=== PATIENT | male | born 1965 | race Caucasian/White ===

== ENCOUNTER 2018-04-08 12:12 | Emergency (ER) | payer BC ==
--- OUTSIDE RECORDS SUMMARY | 2018-04-08 12:14 | XMS REPORT ---
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 91368180093 10 MG Orally Once Active 1 tablet a day Results No Known Results Summary Purpose eClinicalWorks Submission
--- OUTSIDE RECORDS SUMMARY | 2018-04-08 12:14 | XMS REPORT ---
:1965 Author Organization eClinicalWorks Care Team Providers Name Role Phone Bobbi, Christiano Provider Role Unavailable Allergies No Known Allergies [...] Active Problem Osteoarthritis, multiple sites M15.9 Active Assessment Other chronic pain G89.29 Active Assessment Pain in right knee M25.561 Active Assessment Type 2 diabetes mellitus with E11.65 Active hyperglycemia Assessment Hyperlipidemia E78.5 Active Assessment Hypertension I10 Active Medications Medication Code Code Instructions Start End Status Dosage System Date Date Simvastatin [facility] 97622449179 20 MG Oral Active TAKE 1 TABLET EVERY EVENING EQ Aspirin Adult [facility] 28400917416 81 MG Oral Active not Low Dose defined Zestril [facility] 69360970672 10 MG Active TAKE 1 TABLET BY MOUTH EVERY DAY Lyrica [facility] 13956213447 50 MG Oral Active not defined Indomethacin [facility] 11400352195 25 MG Oral Sept Active take one Twice a day 18, capsule by 2018 mouth twice a day Lisinopril [facility] 38038347672 10 MG Oral Active TAKE 1 TABLET BY MOUTH EVERY DAY Methocarbamol [facility] 49382453123 500 MG Oral bid Sept Active take 1 18, tablet by 2018 mouth twice a day Niacin ER ND 25358649667 500 MG Orally Active 1 capsule Once a day with food Calcipotriene [facility] 58893809387 0.005 % Active not External defined Pneumovax 23 [facility] 37428878374 25 MCG/0.5ML Active not Injection defined Diclofenac Sodium [facility] 91104525938 75 MG Orally Jenni Active 1 tablet Twice a day as 21, with food needed 2018 or milk Aspirin [facility] 71049383438 81 MG Oral Active TAKE 1 TABLET BY MOUTH EVERY DAY Flonase [facility] 10665930664 50 MCG/ACT Active 1 spray in Nasally Once a each day nostril Claritin-D 12 [facility] 86666930781 5-120 MG Orally Active 1 tablet Hour every 12 hrs as needed Metformin HCl [facility] 50336825224 500 MG Oral Active TAKE 1 TABLET BY MOUTH TWICE A DAY Amoxicillin-Pot [facility] 66056208924 500-125 MG Oral Active TAKE 1 Clavulanate TABLET BY MOUTH EVERY 8 HOUR FOR 10 DAYS Zyrtec Allergy [facility] 39118863366 10 MG Orally Active 1 tablet Once a day Results No Known Results Summary Purpose eClinicalWorks Submission
--- OUTSIDE RECORDS SUMMARY | 2018-04-08 12:14 | XMS REPORT ---
:1965 Author Organization eClinicalWorks Care Team Providers Name Role Phone Christiano Martines Provider Role Unavailable Allergies, Adverse Reactions, Alerts Substance Reaction Event Type N.K.D.A. 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 Problem Tobacco abuse counseling Z71.6 Active Problem Allergic rhinitis, seasonal J30.2 Active Medications Medication Code Code Instructions Start End Status Dosage System Date Date GlyBURIDE [facility] 51756178331 5 MG Orally Carmella Active 1 tablet Once a day , with 2016 breakfast or the first main meal of the day Diclofenac [facility] 29997638508 75 MG Orally Active 1 tablet Sodium Twice a day with food or milk Amoxicillin-Pot [facility] 23773328773 500-125 MG Oral Active TAKE 1 Clavulanate TABLET BY MOUTH EVERY 8 HOUR FOR 10 DAYS Metformin HCl [facility] 89436824393 500 MG Oral Active TAKE 1 TABLET BY MOUTH TWICE A DAY Indomethacin [facility] 96396458527 25 MG Oral Active TAKE ONE CAPSULE BY MOUTH TWICE A DAY Niacin ER [facility] 73279447368 500 MG Orally Active 1 capsule Once a day with food Pneumovax [address] [facility] 46979588742 25 MCG/0.5ML Active not defined Injection EQ Aspirin Adult [facility] 29734044151 81 MG Oral Active not defined Low Dose Simvastatin [facility] 40293513875 20 MG Oral Active TAKE 1 TABLET EVERY EVENING Lisinopril [facility] 46685078204 10 MG Oral Active TAKE 1 TABLET BY MOUTH EVERY DAY Lyrica [facility] 15480116426 50 MG Oral Active not defined Flonase [facility] 72137139603 50 MCG/ACT Active 1 spray in Nasally Once a each day nostril Methocarbamol [facility] 64896184613 500 MG Oral Active TAKE 1 TABLET BY MOUTH TWICE A DAY Calcipotriene [facility] 31869500084 0.005 % Active not defined External Claritin-D [address] [facility] 55290775361 5-120 MG Orally Active 1 tablet as Hour every 12 hrs needed Zyrtec Allergy [facility] 32511404128 10 MG Orally Active 1 tablet Once a day Aspirin [facility] 65841190855 81 MG Oral Active TAKE 1 TABLET BY MOUTH EVERY DAY Results No Known Results Summary Purpose eClinicalWorks Submission
--- OUTSIDE RECORDS SUMMARY | 2018-04-08 12:14 | XMS REPORT ---
:1965 Author Organization eClinicalWorks Care Team Providers Name Role Phone Christiano Martines Provider Role Unavailable Allergies, Adverse Reactions, Alerts Substance Reaction Event Type N.K.D.A. 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 Problem Hyperlipidemia E78.5 Active Problem Allergic rhinitis, seasonal J30.2 Active Problem Type 2 diabetes mellitus with E11.65 Active hyperglycemia Assessment Environmental allergies Z91.09 Active Assessment Tobacco abuse counseling Z71.6 Active Problem Obstructive sleep apnea G47.33 Active Assessment Viral upper respiratory tract J06.9 Active infection Problem Osteoarthritis, multiple sites M15.9 Active Medications Medication Code Code Instructions Start End Status Dosage System Date Date Pneumovax 23 [facility] 69806054057 25 MCG/0.5ML Active not Injection defined Lisinopril [facility] 60123115581 10 MG Orally Active 1 tablet Once a day Calcipotriene [facility] 53692981697 0.005 % Active not External defined Zyrtec Allergy [place] 32575876761 10 MG Orally Active 1 tablet Once a day Lyrica ND 16496307421 50 MG Oral Active not defined Metformin HCl [place] 25744696734 500 MG Active TAKE 1 TABLET BY MOUTH TWICE A DAY Methocarbamol ND 71782261378 500 MG Oral bid Sept Active take 1 18, tablet by 2018 mouth twice a day Niacin ER ND 17785935357 500 MG Orally Active 1 capsule Once a day with food Aspirin ND 96306626048 81 MG Oral Active TAKE 1 TABLET BY MOUTH EVERY DAY Simvastatin [facility] 11337417840 20 MG Oral Active TAKE 1 TABLET EVERY EVENING Zestril [facility] 72396496075 10 MG Active TAKE 1 TABLET BY MOUTH EVERY DAY Flonase [facility] 11882127690 50 MCG/ACT Active 1 spray in Nasally Once a each day nostril Indomethacin [facility] 57122271405 25 MG Oral Sept Active take one Twice a day , capsule by 2018 mouth twice a day Montelukast [facility] 10478626206 10 MG Orally Sept , Active 1 tablet Sodium Once a day 2017 Amoxicillin-Pot [facility] 71918551417 500-125 MG Oral Active TAKE 1 Clavulanate TABLET BY MOUTH EVERY 8 HOUR FOR 10 DAYS Claritin-D 12 [facility] 32146238680 5-120 MG Orally Active 1 tablet Hour every 12 hrs as needed Results No Known Results Summary Purpose eClinicalWorks Submission
--- OUTSIDE RECORDS SUMMARY | 2018-04-08 12:14 | XMS REPORT ---
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 Problem Tobacco abuse counseling Z71.6 Active Problem Allergic rhinitis, seasonal J30.2 Active Assessment Obstructive sleep apnea G47.33 Active Assessment Tobacco abuse counseling Z71.6 Active Assessment Osteoarthritis, multiple sites M15.9 Active Assessment Type 2 diabetes mellitus with E11.65 Active hyperglycemia Medications Medication Code Code Instructions Start End Status Dosage System Date Date Simvastatin [facility] 84888596573 20 MG Oral Active TAKE 1 TABLET EVERY EVENING Metformin HCl [facility] 85916914436 500 MG Oral Active TAKE 1 TABLET BY MOUTH TWICE A DAY Claritin-D 12 [facility] 39399315635 5-120 MG Orally Active 1 tablet Hour every 12 hrs as needed Pneumovax 23 [facility] 11141697761 25 MCG/0.5ML Active not Injection defined Diclofenac Sodium [facility] 68388970641 75 MG Orally Active 1 tablet Twice a day with food or milk Amoxicillin-Pot [facility] 82572619671 500-125 MG Oral Active TAKE 1 Clavulanate TABLET BY MOUTH EVERY 8 HOUR FOR 10 DAYS Niacin ER ND 23780741947 500 MG Orally Active 1 capsule Once a day with food Indomethacin [facility] 20004579262 25 MG Oral Sept Active take one Twice a day 18, capsule by 2018 mouth twice a day Flonase [facility] 24590411993 50 MCG/ACT Active 1 spray in Nasally Once a each day nostril Zyrtec Allergy [facility] 31066306579 10 MG Orally Active 1 tablet Once a day Aspirin [facility] 91737361179 81 MG Oral Active TAKE 1 TABLET BY MOUTH EVERY DAY Calcipotriene [facility] 82140196753 0.005 % Active not External defined Methocarbamol [facility] 62405523434 500 MG Oral bid Sept Active take 1 18, tablet by 2018 mouth twice a day EQ Aspirin Adult [facility] 59464129795 81 MG Oral Active not Low Dose defined Lisinopril [facility] 80342260659 10 MG Oral Active TAKE 1 TABLET BY MOUTH EVERY DAY Lyrica [facility] 31766688095 50 MG Oral Active not defined Results No Known Results Summary Purpose eClinicalWorks Submission
[2018-04-08 13:05] LABS: Absolute Lymphocytes (CBC) 3.4 K/uL (0.7-4.9); Absolute Monocytes 0.9 K/uL (0.1-1.3); Absolute Neutrophil 5.4 K/uL (1.8-8.0); Basophils % 1.5 % (0-1.3); Eosinophils % 1.6 % (0-4.4); Hematocrit 45.4 % (39.6-49.0); Lymphocytes % 33.9 % (15.3-44.8); MCH 30.1 pg (27.0-35.0); MCV 89.3 fL (80-100); MPV 9.6 fL (7.6-11.3); Monocytes % 9.3 % (3.3-12.3); RBC Red Blood Cell Count 5.09 M/uL (4.33-5.43)
[2018-04-08 13:45] LABS: BUN Blood Urea Nitrogen 17 mg/dL (7-18); Bicarbonate 24 mmol/L (21-32); Glucose Level 115 mg/dL (74-106); Potassium 3.9 mmol/L (3.5-5.1); Sodium Level 137 mmol/L (136-145); Troponin (Emerg Dept Use Only) < 0.02 ng/mL (0.0-0.045)
--- NOTE | 2018-04-08 14:17 | RAD REPORT ---
EXAM DESCRIPTION: RAD - Chest Pa And Lat (2 Views) - 04/08/2018 2:10 pm CLINICAL HISTORY: CHEST PAIN Chest pain. COMPARISON: No comparisons FINDINGS: The lungs are clear. The heart is normal in size. No displaced fractures. IMPRESSION: No acute or concerning finding suspected.
--- NOTE | 2018-04-08 15:34 | ER ---
Nurse's Notes [facility] Name: Johan An Age: 53 yrs Sex: Male : 1965 Arrival Date: 04/08/2018 Time: 12:13 Bed 20 Private MD: Christiano Martines Diagnosis: Chest pain, unspecified Presentation: 04/08 12:14 Presenting complaint: Patient states: i have this chest pain that started today around hj 2 hours ago while at work, pressure type of pain; especially when i get a deep breath; pain 7/10; pain radiates to the back; denies nausea and vomiting;. Transition of care: patient was not received from another setting of care. Onset of symptoms was April 08, 2018. Risk Assessment: Do you want to hurt yourself or someone else? Patient reports no desire to harm self or others. Initial Sepsis Screen: Does the patient meet any 2 criteria? No. Patient's initial sepsis screen is negative. Does the patient have a suspected source of infection? No. Patient's initial sepsis screen is negative. Care prior to arrival: None. 12:14 Method Of Arrival: Ambulatory 12:14 Acuity: QAMAR 3 hj Triage Assessment: 12:20 General: Appears in no apparent distress. uncomfortable, Behavior is calm, cooperative, hj appropriate for age. Pain: Complains of pain in chest Pain radiates to back Pain currently is 7 out of 10 on a pain scale. Quality of pain is described as pressure, Pain began 2 hours ago. Is intermittent. Cardiovascular: Capillary refill < 3 seconds Patient's skin is warm and dry. Historical: - Allergies: 12:19 No Known Allergies; hj - Home Meds: 12:19 indomethacin 25 mg Oral cap 1 cap 2 times per day [Active]; methocarbamol 500 mg Oral hj tab 2 tabs 4 times per day [Active]; aspirin 81 mg Oral chew 1 tab once daily [Active]; metformin 500 mg Oral tab 1 tab 2 times per day [Active]; CoQ-10 oral oral [Active]; Zyrtec 10 mg Oral cap daily [Active]; calcipotriene 0.005 % topical crea 2 times per day [Active]; niacin 500 mg oral TbER once daily [Active]; simvastatin 20 mg Oral tab 1 tab once daily [Active]; lisinopril 10 mg Oral tab 1 tab once daily [Active]; Lyrica Oral 1 cap 2 times per day [Active]; - PMHx: 12:19 Diabetes - NIDDM; Hypertension; Hyperlipidemia; hj - PSHx: 12:19 Knee surgery; Carpal Tunnel Repair; hj - Immunization history:: Adult Immunizations up to date. - Social history:: Smoking status: Patient uses tobacco products, Patient uses alcohol. - Ebola Screening: : Patient negative for fever greater than or equal to 101.5 degrees Fahrenheit, and additional compatible Ebola Virus Disease symptoms Patient denies exposure to infectious person Patient denies travel to an Ebola-affected area in the 21 days before illness onset. Screenin:20 Abuse screen: Denies threats or abuse. Denies injuries from another. Nutritional hj screening: No deficits noted. Tuberculosis screening: No symptoms or risk factors identified. Fall Risk None identified. Assessment: 12:30 General: Appears in no apparent distress. uncomfortable, Behavior is calm, cooperative, jl7 appropriate for age. Pain: Complains of pain in anterior aspect of left upper chest Pain does not radiate. "It feels like a sharp pain through to my back when I lift my left arm but other than that it doesn't go anywhere." Pain currently is 7 out of 10 on a pain scale. Quality of pain is described as sharp, Pain began 2 hours ago. Is continuous. Neuro: Level of Consciousness is awake, alert, obeys commands, Oriented to person, place, time, situation. Cardiovascular: Heart tones present Patient's skin is warm and dry. Respiratory: Airway is patent Respiratory effort is even, unlabored, Respiratory pattern is regular, symmetrical, Breath sounds are clear bilaterally. GI: No signs and/or symptoms were reported involving the gastrointestinal system. : No signs and/or symptoms were reported regarding the genitourinary system. Derm: Skin is pink, warm \\T\\ dry. 13:30 Reassessment: Patient appears in no apparent distress at this time. Patient and/or jl7 family updated on plan of care and expected duration. Pain level reassessed. Patient is alert, oriented x 3, equal unlabored respirations, skin warm/dry/pink. 14:30 Reassessment: No changes from previously documented assessment. Patient and/or family jl7 updated on plan of care and expected duration. Pain level reassessed. Patient is alert, oriented x 3, equal unlabored respirations, skin warm/dry/pink. Vital Signs: 12:20 BP 116 / 56; Pulse 84; Resp 18; Temp 98.4(TE); Pulse Ox 97% on R/A; Weight 88.9 kg; hj Height 5 ft. 6 in. (167.64 cm); Pain 7/10; 12:58 BP 131 / 72; Pulse 79; Resp 16 S; Pulse Ox 97% on R/A; jl7 14:30 BP 128 / 68; Pulse 74; Resp 16 S; Pulse Ox 97% on R/A; Pain 4/10; jl7 15:49 BP 129 / 69; Pulse 75; Resp 16 S; Pulse Ox 97% on R/A; jl7 12:20 Body Mass Index 31.63 (88.90 kg, 167.64 cm) hj ED Course: 12:13 Patient arrived in ED. rg4 12:13 Christiano Mratines MD is Private Physician. rg4 12:16 Triage completed. hj 12:20 Arm band placed on left wrist. hj 12:20 potline monitor on. Pulse ox on. NIBP on. hj 12:21 Patient has correct armband on for positive identification. Placed in gown. Bed in low hj position. Call light in reach. Side rails up X 1. Adult w/ patient. 12:21 Patient maintains SpO2 saturation greater than 95% on room air. hj 12:24 Madan Pardo MD is Attending Physician. gs 12:25 Michael Mina RN is Primary Nurse. jl7 12:30 EKG done, by instructional technology facilitator. reviewed by Madan Pardo MD. at1 12:58 Initial lab(s) drawn, by wi, sent to lab. Inserted saline lock: 20 gauge in right jl7 antecubital area, using aseptic technique. Blood collected. 14:00 Patient moved to radiology via wheelchair. jr1 14:10 X-ray completed. Portable x-ray completed in exam room. Patient tolerated procedure jr1 well. 14:11 XRAY Chest Pa And Lat (2 Views) In Process Unspecified. EDMS 15:32 Christiano Martines MD is Referral Physician. gs 15:49 No provider procedures requiring assistance completed. IV discontinued, intact, jl7 bleeding controlled, No redness/swelling at site. Pressure dressing applied. Administered Medications: 15:47 Drug: Clubb 5 mg-325 mg 1 tabs Route: PO; 7 15:50 Follow up: Response: Medication administered at discharge. jl7 Outcome: 15:33 Discharge ordered by . 15:49 Discharged to home ambulatory. jl7 15:49 Condition: stable 15:49 Discharge instructions given to patient, Instructed on discharge instructions, follow up and referral plans. medication usage, Demonstrated understanding of instructions, follow-up care, medications, Prescriptions given X 1. 15:50 Patient left the ED. jl7 Signatures: Dispatcher [employer] EDMS Sejal Valiente jr1 Catherine Jorgensen, reception specialist EKG Tat1 Iron March RN RN Sanjana Araya Jahala, RN RN jl7 Madan Pardo MD MD gs Corrections: (The following items were deleted from the chart) 12:22 12:20 Pulse 84bpm; Resp 18bpm; Pulse Ox 97% RA; Temp 98.4F Temporal; 88.9 kg; Height 5 hj ft. 6 in.; BMI: 31.6; Pain 7/10; hj 12:23 12:20 BP 100 / 66; Pulse 84bpm; Resp 18bpm; Pulse Ox 97% RA; Temp 98.4F Temporal; 88.9 hj kg; Height 5 ft. 6 in.; BMI: 31.6; Pain 7/10; hj
--- NOTE | 2018-04-08 15:34 | EDPHYS ---
Physician Documentation [facility] Name: Johan An Age: 53 yrs Sex: Male : 1965 Arrival Date: 04/08/2018 Time: 12:13 Bed 20 Private MD: Christiano Martines ED Physician Madan Pardo HPI: 04/08 15:29 This 53 yrs old Male presents to ER via Ambulatory with complaints of Chest gs Pain. 15:29 The patient or guardian reports chest pain that is located primarily in the anterior gs chest wall, left. Onset: this morning. The pain does not radiate. Associated signs and symptoms: Pertinent negatives: diaphoresis, dizziness, shortness of breath. The chest pain is described as sharp. Duration: The patient or guardian reports multiple episodes, that wax and wane. Modifying factors: the symptoms are aggravated by movement, twisting torso. Severity of pain: At its worst the pain was moderate in the emergency department the pain has resolved and did so just prior to arrival. The patient has experienced similar episodes in the past, a few times. Historical: - Allergies: 12:19 No Known Allergies; hj - Home Meds: 12:19 indomethacin 25 mg Oral cap 1 cap 2 times per day [Active]; methocarbamol 500 mg Oral hj tab 2 tabs 4 times per day [Active]; aspirin 81 mg Oral chew 1 tab once daily [Active]; metformin 500 mg Oral tab 1 tab 2 times per day [Active]; CoQ-10 oral oral [Active]; Zyrtec 10 mg Oral cap daily [Active]; calcipotriene 0.005 % topical crea 2 times per day [Active]; niacin 500 mg oral TbER once daily [Active]; simvastatin 20 mg Oral tab 1 tab once daily [Active]; lisinopril 10 mg Oral tab 1 tab once daily [Active]; Lyrica Oral 1 cap 2 times per day [Active]; - PMHx: 12:19 Diabetes - NIDDM; Hypertension; Hyperlipidemia; hj - PSHx: 12:19 Knee surgery; Carpal Tunnel Repair; hj - Immunization history:: Adult Immunizations up to date. - Social history:: Smoking status: Patient uses tobacco products, Patient uses alcohol. - Ebola Screening: : Patient negative for fever greater than or equal to 101.5 degrees Fahrenheit, and additional compatible Ebola Virus Disease symptoms Patient denies exposure to infectious person Patient denies travel to an Ebola-affected area in the 21 days before illness onset. ROS: 15:29 All other systems are negative. gs Exam: 15:29 Head/Face: Normocephalic, atraumatic. Eyes: Pupils equal round and reactive to light, gs extra-ocular motions intact. Lids and lashes normal. Conjunctiva and sclera are non-icteric and not injected. Cornea within normal limits. Periorbital areas with no swelling, redness, or edema. ENT: Nares patent. No nasal discharge, no septal abnormalities noted. Tympanic membranes are normal and external auditory canals are clear. Oropharynx with no redness, swelling, or masses, exudates, or evidence of obstruction, uvula midline. Mucous membranes moist. Neck: Trachea midline, no thyromegaly or masses palpated, and no cervical lymphadenopathy. Supple, full range of motion without nuchal rigidity, or vertebral point tenderness. No Meningismus. Chest/axilla: Normal chest wall appearance and motion. Nontender with no deformity. No lesions are appreciated. Cardiovascular: Regular rate and rhythm with a normal S1 and S2. No gallops, murmurs, or rubs. Normal PMI, no JVD. No pulse deficits. Respiratory: Lungs have equal breath sounds bilaterally, clear to auscultation and percussion. No rales, rhonchi or wheezes noted. No increased work of breathing, no retractions or nasal flaring. Abdomen/GI: Soft, non-tender, with normal bowel sounds. No distension or tympany. No guarding or rebound. No evidence of tenderness throughout. Back: No spinal tenderness. No costovertebral tenderness. Full range of motion. Skin: Warm, dry with normal turgor. Normal color with no rashes, no lesions, and no evidence of cellulitis. MS/ Extremity: Pulses equal, no cyanosis. Neurovascular intact. Full, normal range of motion. Neuro: Awake and alert, GCS 15, oriented to person, place, time, and situation. Cranial nerves II-XII grossly intact. Motor strength 5/5 in all extremities. Sensory grossly intact. Cerebellar exam normal. Normal gait. 15:29 Constitutional: The patient appears alert, awake. 15:29 ECG was reviewed by the Attending Physician. Vital Signs: 12:20 BP 116 / 56; Pulse 84; Resp 18; Temp 98.4(TE); Pulse Ox 97% on R/A; Weight 88.9 kg; hj Height 5 ft. 6 in. (167.64 cm); Pain 7/10; 12:58 BP 131 / 72; Pulse 79; Resp 16 S; Pulse Ox 97% on R/A; jl7 14:30 BP 128 / 68; Pulse 74; Resp 16 S; Pulse Ox 97% on R/A; Pain 4/10; jl7 15:49 BP 129 / 69; Pulse 75; Resp 16 S; Pulse Ox 97% on R/A; jl7 12:20 Body Mass Index 31.63 (88.90 kg, 167.64 cm) hj MDM: 12:40 Patient medically screened. gs 15:29 Differential diagnosis: acute myocardial infarction, chest wall pain, pleurisy, gs pneumonia. Data reviewed: vital signs, nurses notes. Counseling: I had a detailed discussion with the patient and/or guardian regarding: the historical points, exam findings, and any diagnostic results supporting the discharge/admit diagnosis, lab results, radiology results, the need for outpatient follow up. Response to treatment: the patient's symptoms have resolved after treatment, the patient's pain is gone. Physician consultation: Christiano Martines MD regarding patient's condition, and will see patient in office. 04/08 12:41 Order name: Basic Metabolic Panel; Complete Time: 13:54 04/08 12:41 Order name: CBC with Diff; Complete Time: 13:54 04/08 12:41 Order name: XRAY Chest Pa And Lat (2 Views); Complete Time: 14:19 04/08 12:41 Order name: Troponin (emerg Dept Use Only); Complete Time: 13:54 04/08 14:19 Order name: Troponin (emerg Dept Use Only); Complete Time: 15:28 04/08 12:14 Order name: EKG - Nurse/Tech; Complete Time: 12:26 04/08 12:25 Order name: EKG; Complete Time: 12:26 [facility] 04/08 12:41 Order name: Cardiac monitoring; Complete Time: 12:54 04/08 12:41 Order name: IV Saline Lock; Complete Time: 12:54 04/08 12:41 Order name: Labs collected and sent; Complete Time: 12:54 04/08 12:41 Order name: O2 Per Protocol; Complete Time: 12:54 04/08 12:41 Order name: O2 Sat Monitoring; Complete Time: 12:54 EC:29 Rate is 83 beats/min. Rhythm is regular. NM interval is normal. QRS interval is normal. gs QT interval is normal. T waves are Normal. No ST changes noted. Clinical impression: Normal ECG. Interpreted by me. Administered Medications: 15:47 Drug: L[place]y 5 mg-325 mg 1 tabs Route: PO; [facility] 15:50 Follow up: Response: Medication administered at discharge. 7 Disposition: 04/08/18 15:33 Discharged to Home. Impression: Chest pain, unspecified. - Condition is Stable. - Discharge Instructions: Nonspecific Chest Pain. - Prescriptions for Tylenol- Codeine #4 300-60 mg Oral Tablet - take 1 tablet by ORAL route every 6 hours As needed; 6 tablet. - Medication Reconciliation Form, Thank You Letter, Antibiotic Education, Prescription Opioid Use form. - Follow up: Christiano Martines MD; When: 2 - 3 days; Reason: Re-evaluation by your physician. Signatures: Dispatcher [employer] EDMS Iron March RN RN Michael Mina RN RN [email or web address] Madan Pardo MD MD Corrections: (The following items were deleted from the chart) 15:50 15:33 04/08/2018 15:33 Discharged to Home. Impression: Chest pain, unspecified. jl7 Condition is Stable. Forms are Medication Reconciliation Form, Thank You Letter, Antibiotic Education, Prescription Opioid Use. Follow up: Christiano Martines; When: 2 - 3 days; Reason: Re-evaluation by your physician. gs
[2018-04-08] MEDS ORDERED: HYDROCODONE/APAP 5/325 MG TAB ONE (15:51)
--- NOTE | 2018-04-08 18:05 | EKG ---
Test Date: 2018-04-08 Test Time: 12:26:49 [employer] Bever[employer] Supervisor: ANN MARIE MEASUREMENT RESULTS: Intervals: Rate: 83 AR: 148 QRSD: 92 QT: 370 QTc: 434 Norco: P: 17 AR: 148 QRS: 81 T: 28 INTERPRETIVE STATEMENTS: Normal sinus rhythm Normal ECG Compared to ECG 02/27/1997 13:44:00 No significant changes Electronically Signed On 04-08-18 18:03:12 [employer]PER[employer] by Tony Finley
== END 2018-04-08 15:50 | disposition home or self-care (01) ==
LOC: ER 12:12
DX: R07.9 Chest pain, unspecified (principal); E11.9 Type 2 diabetes mellitus without complications; I10 Essential (primary) hypertension; E78.5 Hyperlipidemia, unspecified
CPT/HCPCS: 36415; 71046; 80048; 84484; 85025; 93005; 99285